=== PATIENT | male | born 1955 | race Caucasian/White ===

== ENCOUNTER → 2017-05-31 | Outpatient (CLI) | payer OTHER ==
[2017-05-31 10:37] LABS: BASO % 0.7 %; BASO ABS # 0.03 K/uL (0-0.2); EOS % 0.9 %; EOS ABS # 0.04 K/uL (0-0.5); HEMATOCRIT 44.5 % (42-52); IG# 0.01 K/uL (0.00-0.02); LYMPH % 28.7 %; LYMPH ABS # 1.27 K/uL (1.2-3.4); MEAN CELL VOLUME 90.6 fL (80-100); MEAN CORPUSCULAR HEMOGLOBIN 30.5 pg (25-34); MEAN CORPUSCULAR HGB CONC 33.7 g/dl (32-36); MEAN PLATELET VOLUME 10.7 fL (7.4-10.4); MONO % 8.1 %; MONO ABS # 0.36 K/uL (0.11-0.59); NEUT % 61.4 %; NEUT ABS # 2.71 K/uL (1.4-6.5); PLATELET COUNT 154 K/uL (130-400); RED CELL DISTRIBUTION WIDTH CV 13.2 % (11.5-14.5); RED CELL DISTRIBUTION WIDTH SD 43.5 fL (36.4-46.3); WHITE BLOOD COUNT 4.42 K/uL (4.8-10.8)
[2017-05-31 11:04] LABS: ALBUMIN 4.1 gm/dl (3.4-5.0); BLOOD UREA NITROGEN 14 mg/dl (7-18); CALCIUM 9.1 mg/dl (8.5-10.1); CARBON DIOXIDE 29 mmol/L (21-32); CHOLESTEROL 156 mg/dl (0-200); CREATININE 0.84 mg/dl (0.60-1.40); GLUCOSE 98 mg/dl (70-99); SODIUM 141 mmol/L (136-145)
[2017-05-31 11:14] LABS: ALKALINE PHOSPHATASE 51 U/L (45-117); ALT/SGPT 31 U/L (12-78); AST/SGOT 19 U/L (15-37); LDL CHOLESTEROL CALCULATED 89 mg/dl; TOTAL PROTEIN 7.2 gm/dl (6.4-8.2)
== END | disposition home or self-care (01) ==
LOC: C.LAB1850 09:39
PROVIDERS: ATTEND Neuromusculoskeletal Medicine & OMM
DX: Z00.00 Encounter for general adult medical examination without abnormal findings (principal); E78.5 Hyperlipidemia, unspecified; Z12.5 Encounter for screening for malignant neoplasm of prostate; Z13.1 Encounter for screening for diabetes mellitus